=== PATIENT | female | born 1955 | race Native Hawaiian/Other Pacific Islander ===

== ENCOUNTER 2016-04-13 20:39 | Emergency (ER) | payer OTHER ==
[~2016-04-13] VITALS: Ht 152.4 cm; Wt 47.2 kg
[~2016-04-13 20:39] MED LIST: ACET-655 PO; AMBIEN CR12.5 MG PO; CARI350T15 PO; CLON1TAB18 PO; METO50TA63 PO; OXYC40TA4 PO; PANT40TA PO; PERCOCET1 TA3 PO; PROM25TA52 PO; RANI150T78 PO; SUMA6INJ SC; TRAZODONE300 MG PO; ZOFRAN ODT4 MG PO
[2016-04-13 22:57] VITALS: BP 118/82; TEMP 98.1
== END 2016-04-13 22:58 | disposition home or self-care (01) ==
LOC: ED 20:39
DX: S46.811A Strain of other muscles, fascia and tendons at shoulder and upper arm level, right arm, initial encounter (principal); S40.021A Contusion of right upper arm, initial encounter; W18.39XA Other fall on same level, initial encounter; Y92.098 Other place in other non-institutional residence as the place of occurrence of the external cause
CPT/HCPCS: 99283